=== PATIENT | female | born 1950 | race Caucasian/White ===

== ENCOUNTER 2025-02-28 08:32 | Inpatient (IN) ==
--- NOTE | 2025-02-01 09:28 | PAT Medication Instructions ---
Medication Instructions Date of Service February 01, 2025 Home Medications albuterol 90 mcg/actuation aerosol inhaler 90 mcg inhalation DAILY PRN cholecalciferol (vitamin D3) 100 mcg (4,000 unit) capsule 100 mcg PO DAILY furosemide 20 mg tablet (Lasix) 20 mg PO QAM gabapentin 300 mg capsule 900 mg PO QAM ibuprofen 200 mg tablet (Advil) 400 mg PO Q6H PRN levothyroxine 100 mcg tablet 100 mcg PO QAM lisinopril 5 mg tablet 5 mg PO BID lorazepam 1 mg tablet 1 mg PO BID metoprolol succinate 50 mg tablet,extended release 24 hr 50 mg PO QPM [id number]-[id number] 8 mg-folic 400 mcg-K 50 mcg-lutein 300 mcg tablet (Centrum Silver Women) 1 tab PO DAILY quetiapine 50 mg tablet (Seroquel) 50 mg PO HS sertraline 100 mg tablet 100 mg PO BID zolpidem 10 mg tablet (Ambien) 10 mg PO HS Continue as directed albuterol 90 mcg/actuation aerosol inhaler 90 mcg inhalation DAILY PRN(use if needed; please bring with you to hospital day of surgery if possible) ASK your surgeon for instructions ibuprofen 200 mg tablet (Advil) 400 mg PO Q6H PRN DO NOT take the morning of surgery cholecalciferol (vitamin D3) 100 mcg (4,000 unit) capsule 100 mcg PO DAILY furosemide 20 mg tablet (Lasix) 20 mg PO QAM lisinopril 5 mg tablet 5 mg PO BID [id number] 8 mg-folic 400 mcg-K 50 mcg-lutein 300 mcg tablet (Centrum Silver Women) 1 tab PO DAILY Take morning of surgery With a small sip of water, OTHERWISE NOTHING TO EAT OR DRINK AFTER MIDNIGHT: gabapentin 300 mg capsule 900 mg PO QAM levothyroxine 100 mcg tablet 100 mcg PO QAM lorazepam 1 mg tablet 1 mg PO BID sertraline 100 mg tablet 100 mg PO BID Take evening before surgery lisinopril 5 mg tablet 5 mg PO BID lorazepam 1 mg tablet 1 mg PO BID metoprolol succinate 50 mg tablet,extended release 24 hr 50 mg PO QPM quetiapine 50 mg tablet (Seroquel) 50 mg PO HS sertraline 100 mg tablet 100 mg PO BID zolpidem 10 mg tablet (Ambien) 10 mg PO HS Other Notes If you have any questions please call us at [phone] or [phone] or [phone] or [phone]
--- NOTE | 2025-02-04 12:53 | Anesthesiology Consultation ---
Date of Service February 04, 2025 Assessment & Plan (1) Encounter for pre-operative examination: - cardiology clearance 02/10/25: "...preoperative cardiac clearance...based on history, physical examination and the above information do not recommend further invasive or noninvasive cardiovascular testing or procedures prior to proceeding with planned lumbar surgery...optimized from a cardiac standpoint to proceed with her scheduled procedure. Recommend continuing beta marianna throughout the perioperative phase...pacemaker recommendations will be provided through our device clinic. If electrocautery is used above the umbilicus, recommend magnet placement over pacemaker. No reprogramming needed after surgery..." - medical clearance 02/07/25: "...medically cleared..." - Medtronic pacemaker. - Patient states she was in [facility] ER last night for back pain. She states was told to keep plan for surgery. Denies any change since evaluation, including any saddle paresthesias/anesthesias, loss of bowel or bladder control. Patient summary report also lists falls. She states last fall was one week ago as she was sitting on edge of bed and reached down for something then slid off the bed-denies hitting head. Will request records. She reports soon appointment with PCP-will go to ER for any changed/worsening symptoms. Chart Review Chart Review: Acceptable Risk for Surgery and Patient seen in Pre Admission Testing Teaching & Discussion Pre-Anesthesia Teaching/Discussion Notes: Instructed NPO after midnight before surgery, except medications with 15 cc of water. Medication instructions provided according to the PAT guidelines. History Surgery Operation Date: 02/28/25 09:05 Proposed Procedures p L5-S1 Decompression and Fusion, Hardware Removal L3-L5 - Marcial Hebert DO Height/Weight Height: 5 ft 6.5 in Weight: 102.7 kg Allergies Allergy/AdvReac Type Severity Reaction Status Date / Time Iodinated Contrast Media AdvReac Severe Vomiting Verified 02/01/25 07:47 Medications Home Medications Medication Instructions Recorded Confirmed Last Taken albuterol 90 mcg/actuation aerosol 90 mcg inhalation DAILY PRN COPD 02/01/25 02/01/25 Unknown inhaler cholecalciferol (vitamin D3) 100 100 mcg PO DAILY 02/01/25 02/01/25 Unknown mcg (4,000 unit) capsule furosemide 20 mg tablet (Lasix) 20 mg PO QAM 02/01/25 02/01/25 Unknown gabapentin 300 mg capsule 900 mg PO QAM 02/01/25 02/01/25 Unknown ibuprofen 200 mg tablet (Advil) 400 mg PO Q6H PRN Pain 02/01/25 02/01/25 Unknown levothyroxine 100 mcg tablet 100 mcg PO QAM 02/01/25 02/01/25 Unknown lisinopril 5 mg tablet 5 mg PO BID 02/01/25 02/01/25 Unknown lorazepam 1 mg tablet 1 mg PO BID 02/01/25 02/01/25 Unknown metoprolol succinate 50 mg 50 mg PO QPM 02/01/25 02/01/25 Unknown tablet,extended release 24 hr nbhkpwrj-pcds-[id number] 8 mg-folic 400 1 tab PO DAILY 02/01/25 02/01/25 Unknown mcg-K 50 mcg-lutein 300 mcg tablet (Centrum Silver Women) quetiapine 50 mg tablet (Seroquel) 50 mg PO HS 02/01/25 02/01/25 Unknown sertraline 100 mg tablet 100 mg PO BID 02/01/25 02/01/25 Unknown zolpidem 10 mg tablet (Ambien) 10 mg PO HS 02/01/25 02/01/25 Unknown Past Medical History Medical History (Updated 02/04/25 @ 13:15 by Ca Gupta PA-C) Acid reflux "occasionally" Aortic stenosis mild CAD (coronary artery disease) non-obstructive COPD (chronic obstructive pulmonary disease) Albuterol Inhaler PRN "I saw a lung doctor years and years ago and just was told I was overweight." no longer follows with pulm Dilated cardiomyopathy EF 65-70% on 2023 echo History of adverse reaction to anesthesia "one of the nurses told me I needed extra oxygen after surgery." History of blood transfusion dionna-operative History of diverticulitis last episode of 7 years ago History of kidney stones passed on own Hypertension controlled, stable per pt Hypothyroidism Pacemaker Medtronic, follows with [facility] Paroxysmal atrial fibrillation Sleep apnea CPAP-compliant Patient denies h/o stroke, seizures, heart attack, heart failure, DM, or blood clots/DVTs. Exercise / Class Metabolic Activity III < 4 Walking/Shop/Light housework (denies chest discomfort or shortness of breath with usual activities) Past Surgical History Surgical History History of arthroscopy of left knee History of arthroscopy of left shoulder History of cardiac catheterization no stents - "something went wrong and they rushed me to get my pacemaker." [facility] History of cholecystectomy History of colonoscopy History of D&C multiple History of hysterectomy History of lumbar surgery hardware present History of right cataract extraction History of tooth extraction Upper/Lower Dentures Status post cardiac pacemaker procedure Past Anesthesia History No Hx of Anesthesia Complications and No Family Hx of Anesthesia Complications History of PONV No Hx of PONV and No Hx of Motion Sickness Social History Smoking Status: Never smoker Do You Dip or Chew Tobacco: No Hx Alcohol Use: No Hx Substance Use: No substance use type: does not use Review of Systems Patient denies chest pain, shortness of breath, dyspnea on exertion, fever, chills, cough, wheezing, or palpitations. Physical Exam Vital Signs Vitals BP 122/85 P 75 TEMP 97.8 SP02 94% on RA RESP 18 Physical Patient resting comfortably in chair in no acute distress, alert and oriented, responding appropriately throughout visit Full cervical extension range of motion without pain TMD 3 finger breadths Mallampati Score 3 Dentition: edentulous, full upper and lower dentures Lungs: normal respiratory effort. Good air movement, clear throughout to auscultation, no adventitious breath sounds Cardiac: regular rate and rhythm, no murmurs noted Carotid arteries: negative bruit bilat Lab Results Anesthesia Preop Results Results Anesthesia Widget: WBC 7.68 K/ul (4.8-10.8) 02/04/25 Hgb 15.6 g/dl (12.0-16.0) 02/04/25 Hct 46.4 % (37.0-47.0) 02/04/25 Plt 353 K/uL (130-400) 02/04/25 Na 141 mmol/L (136-145) 02/04/25 K 3.8 mmol/L (3.5-5.1) 02/04/25 Cl 106 mmol/L (98-107) 02/04/25 CO2 29 mmol/L (21-32) 02/04/25 BUN 17 mg/dl (6-23) 02/04/25 Creat 0.76 mg/dl (0.6-1.2) 02/04/25 Glucose Level 91 mg/dl (70-99(Fasting)) 02/04/25 PT 12.1 Seconds (9.0-12.0) H 02/04/25 PTT 32 Seconds (21-31) H 02/04/25 INR 1.1 (0.9-1.1) 02/04/25 Urine Color Yellow 02/04/25 Urine Appearance Clear (Clear) 02/04/25 Urine pH 5.0 (4.5-7.5) 02/04/25 Urine Specific [place] 1.021 (1.000-1.030) 02/04/25 Urine Protein Negative (Negative) 02/04/25 Urine Glucose (UA) Negative (Negative) 02/04/25 Urine Ketones Negative (Negative) 02/04/25 Urine Blood Negative (Negative) 02/04/25 Urine Nitrite Negative (Negative) 02/04/25 Urine Bilirubin Negative (Negative) 02/04/25 Urine Urobilinogen Negative (Negative) 02/04/25 Urine Leukocyte Esterase Trace (Negative) H 02/04/25 Urine WBC (Auto) 0-5 /hpf (0-5) 02/04/25 Urine RBC (Auto) 0-2 /hpf (0-2) 02/04/25 Urine Hyaline Casts (Auto) 3-5 /lpf (0-2) H 02/04/25 Urine Epithelial Cells (Auto) 11-20 /hpf (0-2) H 02/04/25 Urine Bacteria (Auto) 2+ (None Seen) H 02/04/25 Blood Type AB Positive 02/04/25 Antibody Screen NEGATIVE 02/04/25 Testing Laboratory Results Surgeon's office made aware of abnormal UA. Electrocardiogram Date: 02/10/25 Electronic atrial pacemaker RBBB Chest X-Ray Date: 12/26/24 *1 view* Stable appearance without acute disease seen at this time Echocardiogram Date: 12/09/23 EF 65-70% Mid aortic stenosis, peak and mean transaortic pressure gradients of 21 mmHg and 13 mmHg Estimation of the aortic valve area was not accurately calculated, but the gradients would be consistent with very mild stenosis Mild tricuspid insufficiency Cervical Spine Date: 12/26/24 No acute fracture or traumatic subluxation Prominent multilevel left-sided degenerative facet changes Prominent marginal osteophytes throughout the vertebral bodies Mild multilevel degenerative disc height loss Severe atlantodental degenerative change Other Testing Head CT 12/26/24 No acute intracranial pathology Pacemaker report 11/16/24 Medtronic AAIR DDDR 0 pace terminated episodes "All values WNL" No new episodes since last transmission /VS 75.3%, SHIP SURVEYOR 21.5%
[2025-02-28] MEDS ORDERED: LIDOCAINE 2% 2 ML VIAL/AMP(20MG/ML) INFIL ONE (08:38)
[2025-02-28] MEDS ORDERED: PROPOFOL IV EMULSION 10 MG/ML 20 ML VIAL IV ONE (08:38)
[2025-02-28] MEDS ORDERED: ROCURONIUM BROMIDE 10 MG/ML 5 ML VIAL IV ONE (08:38)
[2025-02-28] MEDS ORDERED: MIDAZOLAM HCL 1 MG/ML 2ML VIAL ONE (08:39)
[2025-02-28] MEDS: LR 60ML/HR IV SCH (09:07)
[2025-02-28] MEDS: ACETAMINOPHEN 500 MG TAB PO SCH (09:14)
[2025-02-28] MEDS: LR 15ML/HR IV SCH (09:14)
[2025-02-28] MEDS: CeleBREX 200 MG CAP PO SCH (09:14)
[2025-02-28] MEDS: GABAPENTIN 300 MG CAP PO SCH (09:21)
[2025-02-28] MEDS ORDERED: ATROPINE SULFATE 0.1 MG/ML 10ML SYR IV PRN (09:39)
[2025-02-28] MEDS ORDERED: HYDROmorphone INJ 2 MG/ML SYR/VIAL IV PRN (09:39)
[2025-02-28] MEDS ORDERED: PROMETHAZINE HCL 6.25 MG in SODIUM CHLORIDE 0.9% 50 ML IV PRN (09:39)
--- NOTE | 2025-02-28 09:55 | History & Physical Bridge Note ---
Date of Service February 28, 2025 History & Physical Bridge Note I have examined the patient, reviewed the History & Physical and in the interval since the performance of the History & Physical I have noted the following changes of clinical significance: no changes noted
--- NOTE | 2025-02-28 09:56 | History & Physical Report ---
Date of Service February 28, 2025 Assessment & Plan (1) Lumbosacral spondylosis with radiculopathy: Plan: L5-S1 decompression fusion, hardware removal L3-L5 History of Present Illness Chief Complaint: Back and bilateral leg pain Primary Care Provider: Matt Michele MD This is a 75-year-old female who presents with chronic persistent back and bilateral leg pain after failing course of nonoperative care is here for surgical intervention. Allergies Allergy/AdvReac Type Severity Reaction Status Date / Time Iodinated Contrast Media AdvReac Severe Vomiting Verified 02/28/25 08:53 Home Medications Medication Instructions Recorded Confirmed Type albuterol 90 mcg/actuation aerosol 90 mcg inhalation DAILY PRN COPD 02/01/25 02/28/25 History inhaler cholecalciferol (vitamin D3) 100 100 mcg PO DAILY 02/01/25 02/28/25 History mcg (4,000 unit) capsule furosemide 20 mg tablet (Lasix) 20 mg PO QAM 02/01/25 02/28/25 History gabapentin 300 mg capsule 900 mg PO QAM 02/01/25 02/28/25 History ibuprofen 200 mg tablet (Advil) 400 mg PO Q6H PRN Pain 02/01/25 02/28/25 History levothyroxine 100 mcg tablet 100 mcg PO QAM 02/01/25 02/28/25 History lisinopril 5 mg tablet 5 mg PO BID 02/01/25 02/28/25 History lorazepam 1 mg tablet 1 mg PO BID 02/01/25 02/28/25 History metoprolol succinate 50 mg 50 mg PO QPM 02/01/25 02/28/25 History tablet,extended release 24 hr tejxuauw-eqpt-zsdt 8 mg-folic 400 1 tab PO DAILY 02/01/25 02/28/25 History mcg-K 50 mcg-lutein 300 mcg tablet (Centrum Silver Women) quetiapine 50 mg tablet (Seroquel) 50 mg PO HS 02/01/25 02/28/25 History sertraline 100 mg tablet 100 mg PO BID 02/01/25 02/28/25 History zolpidem 10 mg tablet (Ambien) 10 mg PO HS 02/01/25 02/28/25 History acetaminophen 500 mg tablet 1,000 mg PO Q6H PRN Pain 02/28/25 02/28/25 History apixaban 5 mg tablet (Eliquis) 5 mg PO BID 02/28/25 02/28/25 History Past Med/Surg History Problem List (Updated 02/28/25 @ 09:56 by Marical Hebert DO) Lumbosacral spondylosis with radiculopathy Encounter for pre-operative examination Lumbar stenosis with neurogenic claudication (Acute 01/03/14) Medical History (Updated 02/28/25 @ 09:56 by Marcial Hebert DO) History of blood transfusion dionna-operative History of diverticulitis last episode of 7 years ago Aortic stenosis mild Paroxysmal atrial fibrillation CAD (coronary artery disease) non-obstructive Dilated cardiomyopathy EF 65-70% on 2023 echo History of adverse reaction to anesthesia "one of the nurses told me I needed extra oxygen after surgery." History of kidney stones passed on own Acid reflux "occasionally" Hypothyroidism Hypertension controlled, stable per pt Pacemaker Medtronic, follows with [facility] Sleep apnea CPAP-compliant COPD (chronic obstructive pulmonary disease) Albuterol Inhaler PRN "I saw a lung doctor years and years ago and just was told I was overweight." no longer follows with pulm Surgical History History of tooth extraction Upper/Lower Dentures History of lumbar surgery hardware present History of arthroscopy of left shoulder History of arthroscopy of left knee History of hysterectomy History of D&C multiple History of cholecystectomy History of colonoscopy History of right cataract extraction History of cardiac catheterization no stents - "something went wrong and they rushed me to get my pacemaker." [facility] Status post cardiac pacemaker procedure Social History Smoking Status: Never smoker Second Hand Exposure: No; Do You Dip or Chew Tobacco: No; Tobacco Cessation Education Requested by Patient: No Hx Alcohol Use: No Hx Substance Use: No Preferred Language: Indonesian Communication Ability: Effective Rolfer Required: No Beliefs That Will Affect Care: None Current Living Situation: Family Current Living Situation Comment: [facility] Other Information That Helps Us Care for You: No Feels Safe at Home: Yes Safety Concerns: Feels Safe At This Time Assistive Devices: CPAP, Denture - Upper, Denture - Lower, Glasses and Walker Physical Exam Physical Exam: Patient is alert and oriented heart regular rhythm Lungs clear Results & Data Results & Data Vital Signs (Past 12 Hours) Vital Signs Temp Pulse Resp BP Pulse Ox O2 Del Method 02/28/25 09:22 Room Air 02/28/25 08:50 37.2 C 83 20 127/85 95 Room Air
[2025-02-28] MEDS ORDERED: HYDROmorphone INJ 2 MG/ML SYR/VIAL ONE (10:54)
[2025-02-28] MEDS: BUPIVACAINE/EPINEPHRINE 0.25% 1:200,000 30 ML VIAL ONE (11:06)
[2025-02-28] MEDS ORDERED: KETOROLAC 30 MG/ML VIAL ONE ×2 (12:10)
[2025-02-28] MEDS ORDERED: SUGAMMADEX SODIUM 200 MG/2 ML VIAL IV ONE (12:10)
[2025-02-28] MEDS: ceFAZolin 330 MG/ML 1 GM VIAL ONE (12:18)
[2025-02-28] MEDS: FLOSEAL HEMOSTATIC MATRIX 10ML TOP ONE (12:20)
--- NOTE | 2025-02-28 12:28 | Operative Report ---
Post Operative Report Pre & Post Diagnosis Operation Date: 02/28/25 09:55 Pre-Op Diagnosis: #1 lumbosacral Spondylosis with Radiculopathy #2 lumbar discrimination with radiculopathy Post-Op Diagnosis: Same I identified the patient and participated in the time-out.: Yes Procedure Operation Date: 02/28/25 09:55 Actual Procedures #1 removal of posterior instrumentation L5 pedicle screw and connector. #2 lumbar decompression with bilateral medial facetectomies and foraminotomies L5- S1. #3 posterior spinal fusion L5-S1. #4 placement posterior instrumentation using camber screws and connectors. #5 interbody fusion L5-S1. #6 placement of Spira 14 x 26 mm cage at L5-S1. #7 placement of Proteus combined with Koros in the posterior gutters and os design in the interbody space. #8 application of versa wrap of the exposed dura. Surgeon Marcial Hebert, Nursing Professor Joselyn Barron Estimated Blood Loss 350 Findings Consistent with Post-Op Diagnosis Specimens None Indications This is a 75-year-old female presents publish diagnosis of failing course of nonoperative care is here for surgical invention. Description of Procedure Patient was met with identified informed consent obtained. Patient was then taken to the operative suite underwent intubation placed in a prone position on the Silver table atop the Dario frame. All bony prominences well-padded eyes inspected to ensure no external precipice upon them. This point the lumbar spine was prepped and draped in normal sterile fashion. Sharp dissection with the assistance of Bovie cautery performed down to and exposing the instrumentation and L5 the lamina of L5 and the sacral ala bilaterally. I then proceeded remove the pedicle screws and connectors at the L5 level. This was followed by complete laminectomy of L5 with bilateral medial facetectomies and foraminotomies addressing severe neural compression and a disc herniation on the left. Pedicle screws were then placed in S1 bilaterally with assistance of fluoroscopy and by way of connectors at the distal aspect of the existing boyd new rods were placed extending from the connectors to the S1 levels bilaterally. By way of transforaminal approach on the left a complete discectomy of L5-S1 was performed endplates corrected to subcortical bleeding bone and a 14 x 26 mm Spira cage filled with os design bone graft tapped in position. The rods were then compressed locked in a final position bilaterally. The transverse processes of L5 and the sacral ala burred to subcortical bleeding bone. Proteus combined with Koros and local autograft placed in posterolateral gutters. Versa wrap placed of exposed dura. 15 round ALTHEA drain inserted. The incision was then closed with 1 Vicryl fascia 2-0 Vicryl subcutaneously and 4-0 Monocryl for final skin closure. Steri-Strips sterile dressing placed. Patient waken taken to PACU in stable condition. Please note Joselyn Barron was present of the entire procedure and on the patient positioning complex portion of the surgery and final skin closure. I attest to the content of the Intraoperative Record and any orders documented therein. Any exceptions are noted below.
--- NOTE | 2025-02-28 12:45 | Fluoroscopy Report ---
FL lumbar spine 2-3V CLINICAL HISTORY: L5-S1 DECOMPRESSION AND FUSION, L3-L5 HARDWARE REMOVAL COMPARISON STUDY: None FLUOROSCOPY TIME: 15 seconds FLUOROSCOPY IMAGES: 3 EXPOSURE DOSE: 14 mGy FINDINGS: Fluoroscopy was provided for lumbar metallic fusion. IMPRESSION: Intraoperative fluoroscopy. ACT 112: Negative or not required by law. Electronically signed by: Tristan Wyatt M.D. 02/28/2025 12:44 PM
--- NOTE | 2025-02-28 13:27 | Anesthesiology Progress Note ---
Date of Service February 28, 2025 Anesthesia Post Procedure Vital Signs Vital Signs: Temp Pulse Pulse Resp BP Pulse Ox O2 Del Method 02/28/25 13:15 78 19 142/77 H 99 Nasal Cannula 02/28/25 13:05 80 16 137/80 100 Oxymask 02/28/25 12:55 80 17 145/92 H 100 Oxymask 02/28/25 12:45 80 17 146/82 H 99 Oxymask 02/28/25 12:37 36.4 C L 75 10 L 154/88 H 100 Oxymask 02/28/25 09:22 Room Air 02/28/25 08:50 37.2 C 83 20 127/85 95 Room Air O2 Flow Rate 02/28/25 13:15 2 02/28/25 13:05 6 02/28/25 12:55 6 02/28/25 12:45 6 02/28/25 12:37 6 02/28/25 09:22 02/28/25 08:50 Pain Intensity Left Hip: Pain Intensity: 10 Back: Pain Intensity: 3 Transfer of Care Handoff Completed per policy Notes Mental Status: alert / awake / arousable Patient Amnestic to Procedure: Yes Nausea / Vomiting: adequately controlled Pain: adequately controlled Airway Patency, RR, SpO2: stable & adequate BP & HR: stable & adequate Hydration State: stable & adequate Anesthetic Complications: no major complications apparent
[2025-02-28] MEDS ORDERED: ONDANSETRON INJ 2 MG/ML 2 ML VIAL IV PRN (14:54)
[2025-02-28] MEDS ORDERED: DO NOT ADMINISTER PNEUMOCOCCAL VACCINE PRN (14:54)
[2025-02-28] MEDS ORDERED: ONDANSETRON 4 MG OD TAB PO PRN (14:54)
[2025-02-28] MEDS ORDERED: HYDROmorphone INJ 1 MG/ML SYRINGE IV PRN (14:54)
[2025-02-28] MEDS ORDERED: HYDROmorphone INJ 0.5 MG/0.5 ML SYR IV PRN (14:54)
[2025-02-28] MEDS ORDERED: SOD PHOSPHATE/SOD BIPHOSPHATE ENEMA 132 ML BTL PR PRN (14:54)
[2025-02-28] MEDS ORDERED: NALOXONE HCL 0.4 MG/1 ML VIAL/CARP IV PRN (14:54)
[2025-02-28] MEDS ORDERED: METOCLOPRAMIDE HCL INJ 5 MG/ML 2 ML VIAL IV PRN (14:54)
[2025-02-28] MEDS ORDERED: ACETAMINOPHEN 1,000 MG/100 ML VIAL IV PRN (14:54)
[2025-02-28] MEDS ORDERED: FAMOTIDINE 20 MG TAB PO PRN (14:54)
[2025-02-28] MEDS ORDERED: ALUMINUM/MAGNESIUM SUSP 30 ML UDC PO PRN (14:54)
[2025-02-28] MEDS ORDERED: ALBUTEROL HFA INHALER 8.5 GM INH PRN (14:54)
[2025-02-28] MEDS ORDERED: diphenhydrAMINE Capsule 25 MG CAP PO PRN (14:54)
[2025-02-28] MEDS ORDERED: DO NOT ADMINISTER FLU VACCINE PRN (14:54)
[2025-02-28] MEDS ORDERED: MAGNESIUM HYDROXIDE SUSP 30 ML UDC PO PRN (14:54)
[2025-02-28] MEDS ORDERED: PROMETHAZINE 12.5 MG/50.5 ML BAG IV PRN (14:54)
[2025-02-28] MEDS: LACTATED RINGER'S 1,000 ML IV SCH (15:08)
--- NOTE | 2025-02-28 15:23 | Consultation ---
Date of Consultation February 28, 2025 Assessment & Plan (1) Lumbosacral spondylosis with radiculopathy: (2) S/P lumbar fusion: (3) CAD (coronary artery disease): (4) Paroxysmal atrial fibrillation: (5) Hypothyroidism: (6) Depression: (7) Sleep apnea: (8) Insomnia: Plan 75 year old female with PMH significant for nonobstructive CAD, sick sinus syndrome s/p pacemaker (2017), chronic HFrEF, PAF on anticoagulation, hypothyroidism, JANELLE on CPAP, depression, insomnia and lumbosacral spondylosis with radiculopathy who underwent L5-S1 decompression fusion and hardware removal on 02/28/[address] Hebert. We have been consulted for post operative medical management. Lumbosacral spondylosis with radiculopathy POD#0 L5-S1 decompression fusion and hardware removal on 02/28/[address] Hebert Activity level, pain control, DVT prophylaxis, wound/drain care per primary team Encourage incentive spirometer Monitor labs in am for post op anemia (EBL 350cc and preop Hgb 15.6) PT/OT in am Nonobstructive CAD Chronic HFrEF Follows with Cardiology Continue furosemide, metoprolol, lisinopril Appears euvolemic Monitor I&Os Atrial fibrillation Continue metoprolol Resume Eliquis as determined by primary team JANELLE CPAP HS per home settings Hypothyroidism Continue levothyroxine Depression Continue sertraline and seroquel Insomnia Continue zolpidem DVT Prophylaxis: TEDs/SCDs per primary team Code Status: FULL CODE PCP: Matt Michele from [facility] Disposition: per primary team Patient seen in collaboration with Dr Beltre. Please see addendum. Thank you for this consultation. We will continue to follow this patient with you. [facility]01 via the role in [employer] - please don't hesitate to reach out with questions. I spent a total of 60 minutes coordinating, documenting and providing care for this patient excluding time spent in the performance of separately billed services or time spent by another provider/QHP. Supervising Physician Co-Signing Physician Notes Attending addendum: The patient was seen and examined in medical floor She is a status post L5-S1 decompression and fusion, L3-L5 hardware removal She has been feeling much better with minimal discomfort at the back Denies any chest pain, palpitation or shortness of breath and no abdominal pain nausea no vomiting On examination Lying in bed without any acute distress Remains hemodynamically stable Chestdecreased breath sounds without any wheezing and no crackles HeartS1-S2, regular Abdomenbenign Extremitiesno edema CNSalert, awake and oriented x 3 Her labs and imaging studies reviewed Status post L5-S1 decompression and fusion, L3-L5 hardware removal and has been stable following the procedure Her other significant medical conditions as mentioned above remains stable and the medication will be continued accordingly Monitor labs in the hospital Agree with assessment and plan as outlined above by ALYSSA Kenny and take the full responsibility of care in the hospital Dr Babatunde Beltre History of Present Illness Requesting Physician: Marcial Hebert DO Reason for Consultation: Post operative medical management Attending Physician: Marcial Hebert DO History of Present Illness 75 year old female with PMH significant for nonobstructive CAD, sick sinus syndrome s/p pacemaker (2017), chronic HFrEF, PAF on anticoagulation, hypothyroidism, JANELLE on CPAP, depression, insomnia and lumbosacral spondylosis with radiculopathy who underwent L5-S1 decompression fusion and hardware removal on 02/28/[address] Hebert. We have been consulted for post operative medical management. Patient seen in her inpatient room post operatively. Notes this is her second back surgery and she is doing much better this time. Reports 5/10 discomfort in her lower back but denies radiculopathy symptoms, which is an improvement from prior to surgery. Denies dizziness, lightheadedness, chest pain, SOB, abdominal pain, N/V/D. Has not passed gas yet but is eating dinner. Uses a walker for ambulation. Allergies Allergy/AdvReac Type Severity Reaction Status Date / Time Iodinated Contrast Media AdvReac Severe Vomiting Verified 02/28/25 08:53 Home Medications Medication Instructions Recorded Confirmed Type albuterol 90 mcg/actuation aerosol 90 mcg inhalation DAILY PRN COPD 02/01/25 02/28/25 History inhaler cholecalciferol (vitamin D3) 100 100 mcg PO DAILY 02/01/25 02/28/25 History mcg (4,000 unit) capsule furosemide 20 mg tablet (Lasix) 20 mg PO QAM 02/01/25 02/28/25 History gabapentin 300 mg capsule 900 mg PO QAM 02/01/25 02/28/25 History ibuprofen 200 mg tablet (Advil) 400 mg PO Q6H PRN Pain 02/01/25 02/28/25 History levothyroxine 100 mcg tablet 100 mcg PO QAM 02/01/25 02/28/25 History lisinopril 5 mg tablet 5 mg PO BID 02/01/25 02/28/25 History lorazepam 1 mg tablet 1 mg PO BID 02/01/25 02/28/25 History metoprolol succinate 50 mg 50 mg PO QPM 02/01/25 02/28/25 History tablet,extended release 24 hr [id number] 8 mg-folic 400 1 tab PO DAILY 02/01/25 02/28/25 History mcg-K 50 mcg-lutein 300 mcg tablet (Centrum Silver Women) quetiapine 50 mg tablet (Seroquel) 50 mg PO HS 02/01/25 02/28/25 History sertraline 100 mg tablet 200 mg PO DAILY 02/01/25 02/28/25 History zolpidem 10 mg tablet (Ambien) 10 mg PO HS 02/01/25 02/28/25 History acetaminophen 500 mg tablet 1,000 mg PO Q6H PRN Pain 02/28/25 02/28/25 History apixaban 5 mg tablet (Eliquis) 5 mg PO BID 02/28/25 02/28/25 History oxycodone 5 mg tablet 5 mg PO Q6H PRN pain #30 tabs 02/28/25 Rx tramadol 50 mg tablet 50 mg PO Q6H PRN pain, moderate 02/28/25 Rx #30 tabs Patient History Medical History (Updated 02/28/25 @ 18:47 by ALYSSA Germain) Insomnia Depression History of blood transfusion dionna-operative History of diverticulitis last episode of 7 years ago Aortic stenosis mild Paroxysmal atrial fibrillation CAD (coronary artery disease) non-obstructive Dilated cardiomyopathy EF 65-70% on 2023 echo History of adverse reaction to anesthesia "one of the nurses told me I needed extra oxygen after surgery." History of kidney stones passed on own Acid reflux "occasionally" Hypothyroidism Hypertension controlled, stable per pt Pacemaker [employer], follows with [facility] Sleep apnea CPAP-compliant COPD (chronic obstructive pulmonary disease) Albuterol Inhaler PRN "I saw a lung doctor years and years ago and just was told I was overweight." no longer follows with pulm Surgical History (Updated 02/28/25 @ 18:47 by ALYSSA Germain) History of tooth extraction Upper/Lower Dentures History of lumbar surgery hardware present History of arthroscopy of left shoulder History of arthroscopy of left knee History of hysterectomy History of D&C multiple History of cholecystectomy History of colonoscopy History of right cataract extraction History of cardiac catheterization no stents - "something went wrong and they rushed me to get my pacemaker." [facility] Status post cardiac pacemaker procedure Social History Smoking Status: Never smoker Second Hand Exposure: No; Do You Dip or Chew Tobacco: No; Tobacco Cessation Education Requested by Patient: No Hx Alcohol Use: No Hx Substance Use: No Preferred Language: Romanian Communication Ability: Effective Winder Fixer Required: No Beliefs That Will Affect Care: None Current Living Situation: Family Current Living Situation Comment: [facility] Other Information That Helps Us Care for You: No Feels Safe at Home: Yes Safety Concerns: Feels Safe At This Time Assistive Devices: CPAP, Denture - Upper, Denture - Lower, Glasses and Walker Review of Systems Review of Systems: All systems reviewed & are unremarkable except as noted in HPI & below Physical Exam Physical Exam: General/Psych: obese, sitting up in bed, appears slightly uncomfortable, conversing easily Head: normocephalic, atraumatic Eyes: normal inspection, PERRL, conjunctivae pink ENT: external ear and nose normal, oropharynx normal Neck: normal visual inspection, trachea midline Respiratory: normal respiratory effort, lungs clear to auscultation, no wheeze/rales/rhonchi, no accessory muscle use Cardiovascular: regular rate and rhythm, systolic murmur appreciated, no JVD Extremities: no cyanosis or clubbing, normal peripheral pulses, no BLE edema, sensation intact BLE Abdomen/GI: normal bowel sounds, soft, nontender Neurologic/MSK: A+Ox3, motor strength 5/5, moves all extremities Skin: no rashes, normal color, warm and dry, island dressing c/d/i, ALTHEA drain with sanguinous output Results & Data Vital Signs (Past 12 Hours) Vital Signs Temp Pulse Pulse Resp BP Pulse Ox O2 Del Method 02/28/25 14:59 36.6 C 76 18 127/77 96 Room Air 02/28/25 14:35 37.3 C 72 16 115/73 96 Room Air 02/28/25 14:05 37.2 C 76 16 125/80 93 Room Air 02/28/25 13:50 74 18 135/67 98 Nasal Cannula 02/28/25 13:35 77 17 128/72 98 Nasal Cannula 02/28/25 13:25 36.6 C 78 17 141/69 H 99 Nasal Cannula 02/28/25 13:15 78 19 142/77 H 99 Nasal Cannula 02/28/25 13:05 80 16 137/80 100 Oxymask 02/28/25 12:55 80 17 145/92 H 100 Oxymask 02/28/25 12:45 80 17 146/82 H 99 Oxymask 02/28/25 12:37 36.4 C L 75 10 L 154/88 H 100 Oxymask 02/28/25 09:22 Room Air 02/28/25 08:50 37.2 C 83 20 127/85 95 Room Air O2 Flow Rate 02/28/25 14:59 02/28/25 14:35 02/28/25 14:05 02/28/25 13:50 2 02/28/25 13:35 2 02/28/25 13:25 2 02/28/25 13:15 2 02/28/25 13:05 6 02/28/25 12:55 6 02/28/25 12:45 6 02/28/25 12:37 6 02/28/25 09:22 02/28/25 08:50 Medications Administered Current Inpatient Medications Acetaminophen (Acetaminophen 500 Mg Tab) 1,000 mg PO Q8H PRN PRN Reason: MILD Pain (1,2,3) & Pre PT Stop: 03/30/25 14:53 Al Hydrox/Mg Hydrox/Simethicone (Aluminum/Magnesium Susp 30 Ml Udc) 30 ml PO Q6H PRN PRN Reason: Dyspepsia Stop: 03/30/25 14:53 Albuterol (Albuterol Hfa Inhaler 8.5 Gm) 90 puffs INH DAILY PRN PRN Reason: COPD Bisacodyl (Bisacodyl 10 Mg Supp) 10 mg DC DAILY PRN PRN Reason: Constipation Stop: 03/30/25 14:53 Diphenhydramine HCl (Diphenhydramine Capsule 25 Mg Cap) 25 mg PO Q6H PRN PRN Reason: Allergic Rhinitis/Insomnia Stop: 03/30/25 14:53 Famotidine (Famotidine 20 Mg Tab) 20 mg PO Q12H PRN PRN Reason: Dyspepsia Stop: 03/30/25 14:53 Furosemide (Furosemide 20 Mg Tab) [facility] [place] Stop: 03/31/25 08:59 Gabapentin (Gabapentin 300 Mg Cap) 900 mg PO [facility] Stop: 03/31/25 08:59 Hydromorphone HCl (Hydromorphone Inj 0.5 Mg/0.5 Ml Syr) 0.5 mg IV Q3H PRN PRN Reason: MODERATE Pain(4,5,6)/Pre PT Stop: 03/14/25 14:53 Hydromorphone HCl (Hydromorphone Inj 1 Mg/Ml Syringe) 1 mg IV Q3H PRN PRN Reason: SEVERE Pain (7,8,9,10) Stop: 03/14/25 14:53 Hydroxyzine HCl (Hydroxyzine Hcl 25 Mg Tab) 25 mg PO Q8H PRN PRN Reason: Anxiety Stop: 03/30/25 14:53 Lactated Ringer's (Lr) 1,000 mls @ 60 mls/hr IV .[id number] [facility] Stop: 02/28/25 22:39 Last Admin: 02/28/25 09:07 Dose: Not Given Lactated Ringer's (Lr) 1,000 mls @ 15 mls/hr IV .Q24H [facility] Stop: 03/01/25 05:59 Last Infusion: 02/28/25 10:28 Dose: Infused Lactated Ringer's (Lr) 1,000 mls @ 75 mls/hr IV .[id number] [facility] Stop: 03/01/25 08:00 Last Admin: 02/28/25 15:08 Dose: 75 mls/hr Acetaminophen (Ofirmev) 1,000 mg in 100 mls @ 400 mls/hr IV Q8H PRN PRN Reason: MILD Pain (1,2,3) & Pre PT Stop: 03/01/25 14:54 Cefazolin Sodium (Ancef 2000mg) 2,000 mg in 15 mls @ 3.75 mls/min IV Q8H MARIAJOSE; Protocol Stop: 03/01/25 02:33 Last Admin: 02/28/25 17:40 Dose: 3.75 mls/min Promethazine HCl (Phenergan) 12.5 mg in 50.5 mls @ 202 mls/hr IV Q6H PRN PRN Reason: Nausea And Vomiting Stop: 03/30/25 14:53 Dexamethasone 6 mg/ Syringe 1.5 mls @ 1 mls/min IV DAILY [facility] Stop: 03/03/25 09:02 Influenza Virus Vaccine Quadrival (Do Not Administer Flu Vaccine) 1 each N/A PRN PRN PRN Reason: Notification Stop: 03/30/25 14:53 Levothyroxine Sodium (Levothyroxine Sodium 100 Mcg Tablet) 100 mcg PO DAILYBB [facility] Stop: 03/31/25 06:29 Lisinopril (Lisinopril 5 Mg Tab) 5 mg PO BID [facility] Stop: 03/30/25 20:59 Lorazepam (Lorazepam 1 Mg Tab) 1 mg PO BID [facility] Stop: 03/30/25 20:59 Lorazepam (Lorazepam 0.5 Mg Tab) 0.5 mg PO Q8H PRN PRN Reason: Sedation/Anxiety Stop: 03/30/25 14:53 Lorazepam (Lorazepam 2 Mg/1 Ml Vial) 0.5 mg IV Q8H PRN PRN Reason: Sedation/Anxiety Stop: 03/30/25 14:53 Magnesium Hydroxide (Magnesium Hydroxide Susp 30 Ml Udc) 30 ml PO Q24H PRN PRN Reason: Constipation Stop: 03/30/25 14:53 Metoclopramide HCl (Metoclopramide Hcl Inj 5 Mg/Ml 2 Ml Vial) 10 mg IV Q6H PRN PRN Reason: Nausea &/or Vomiting Stop: 03/30/25 14:53 Metoprolol Succinate (Metoprolol Succ 50mg Ext Rel Tab) 50 mg PO QPM [facility] Stop: 03/30/25 20:59 Multivitamins/Minerals (Cerovite Adv Formula Tab) 1 tab PO DAILY [facility] Stop: 03/31/25 08:59 Naloxone HCl (Naloxone Hcl 0.4 Mg/1 Ml Vial/Carp) 0.1 mg IV Q5M PRN PRN Reason: Oversedation/Resp depression Stop: 03/30/25 14:53 Ondansetron HCl (Ondansetron Inj 2 Mg/Ml 2 Ml Vial) 4 mg IV Q6H PRN PRN Reason: Nausea &/or Vomiting Stop: 03/30/25 14:53 Ondansetron HCl (Ondansetron 4 Mg Od Tab) 4 mg PO Q6H PRN PRN Reason: Nausea Stop: 03/30/25 14:53 Oxycodone HCl (Oxycodone Hcl Ir 5 Mg Tab (Immediate Release)) 5 - 10 mg PO Q4H PRN PRN Reason: MOD/SEV Pain & Pre PT Stop: 03/14/25 14:53 Last Admin: 02/28/25 17:39 Dose: 5 mg Pneumococcal Polyvalent Vaccine (Do Not Administer Pneumococcal Vaccine) 1 each N/A PRN PRN PRN Reason: Notification Stop: 03/30/25 14:53 Polyethylene Glycol (Polyethylene (Miralax) 17 Gm Pack) 17 gm PO Q6 [facility] Stop: 03/31/25 05:59 Quetiapine Fumarate (Quetiapine Fumarate 25 Mg Tablet) 50 mg PO HS [facility] Stop: 03/30/25 20:59 Senna/Docusate Sodium (Docusate Sodium/Senna 50/8.6mg Tab) 2 tab PO HS [facility] Stop: 03/30/25 20:59 Sertraline HCl (Sertraline Hcl 100 Mg Tablet) 100 mg PO BID [facility] Stop: 03/30/25 20:59 Sodium Biphosphate/Sodium Phosphate (Sod Phosphate/Sod Biphosphate Enema 132 Ml Btl) 132 ml DC ONE PRN PRN Reason: Constipation Stop: 03/30/25 14:53 Tramadol HCl (Tramadol Hcl 50 Mg Tablet) 50 - 100 mg PO Q4H PRN PRN Reason: MOD/SEV Pain & Pre PT Stop: 03/30/25 14:53 Vitamin D (Cholecalciferol 25 Mcg (1000 Units) Tab) 100 mcg PO DAILY [facility] Stop: 03/31/25 08:59 Zolpidem Tartrate (Zolpidem Tartrate 5 Mg Tab) 10 mg PO HS [facility] Stop: 03/30/25 20:59
[2025-02-28] MEDS: DOCUSATE SODIUM/SENNA 50/8.6MG TAB PO SCH (20:15)
[2025-02-28] MEDS: SERTRALINE HCL 100 MG TABLET PO SCH (20:15)
[2025-02-28] MEDS: LORazepam 1 MG TAB PO SCH (20:15)
[2025-02-28] MEDS: METOPROLOL SUCC 50MG EXT REL TAB PO SCH (20:15)
[2025-02-28] MEDS: ZOLPIDEM TARTRATE 5 MG TAB PO SCH (20:15)
[2025-03-01] MEDS: LORazepam 0.5 MG TAB PO PRN (04:01)
[2025-03-01] MEDS: LEVOTHYROXINE SODIUM 100 MCG TABLET PO SCH (05:46)
[2025-03-01] MEDS: POLYETHYLENE (MIRALAX) 17 GM PACK PO SCH (05:46)
[2025-03-01 06:37] LABS: Hematocrit (blood only) 41.5 % (37.0-47.0); Hemoglobin 13.2 g/dl (12.0-16.0); Immature Granulocytes # (auto) 0.19 K/uL (0.01-0.20); Immature Granulocytes % (auto) 1.2 %; Mean Corpuscular Hemoglobin 29.4 pg (25.0-34.0); Mean Corpuscular Volume 92.4 fL (80.0-100.0); Platelet Count 308 K/uL (130-400); RDW Standard Deviation 50.9 fL (36.4-46.3); Red Blood Count 4.49 M/uL (4.20-5.40); White Blood Count 15.34 K/ul (4.8-10.8)
[2025-03-01 06:54] LABS: Anion Gap 7.0 (3-11); Blood Urea Nitrogen 14.0 mg/dl (6-23); Calcium 8.3 mg/dl (8.6-10.3); Carbon Dioxide 24.0 mmol/L (21-32); Chloride 108.0 mmol/L (98-107); Creatinine Clr Calc Pharmacy 75.8 ml/min; Glucose 121.0 mg/dl (70-99(Fasting)); Potassium 3.4 mmol/L (3.5-5.1); Sodium 139.0 mmol/L (136-145)
[2025-03-01] MEDS: dexAMETHasone 6 MG in SYRINGE 0 ML IV SCH (08:03)
[2025-03-01] MEDS: CEROVITE ADV FORMULA TAB PO SCH (08:03)
[2025-03-01] MEDS: CHOLECALCIFEROL 25 MCG (1000 UNITS) TAB PO SCH (08:04)
[2025-03-01] MEDS: GABAPENTIN 300 MG CAP PO SCH (08:05)
[2025-03-01] MEDS: FUROSEMIDE 20 MG TAB PO SCH (08:05)
--- NOTE | 2025-03-01 08:10 | Orthopedic Progress Note ---
Date of Service March 01, 2025 Assessment & Plan (1) Lumbosacral spondylosis with radiculopathy: Plan This time initiate physical therapy monitor ALTHEA output. Will determine disposition pending occupational therapy and physical therapy input. Admission and Anticipated Discharge Date Admission Date: February 28, 2025 Subjective Patient's back pain is controlled leg symptoms markedly improved Physical Exam Physical Exam: Patient is in the chair at bedside. She is comfortable. Good strength testing. Results & Data Vital Signs (Past 12 Hours) Vital Signs Temp Pulse Pulse Resp BP Pulse Ox O2 Del Method 03/01/25 07:46 36.7 C 89 18 108/70 97 Room Air 03/01/25 03:56 36.6 C 71 18 113/73 94 Room Air 02/28/25 23:43 82 17 96 02/28/25 23:02 36.8 C 84 18 124/74 99 Room Air 02/28/25 20:22 37.1 C 84 18 117/74 96 Room Air 02/28/25 20:13 105 H 18 128/76 98 Room Air Queries Orthopedic Spine Obesity: Yes
[2025-03-01] MEDS: POTASSIUM CHLORIDE CRTAB 20 MEQ TABCR PO STA (08:38)
[2025-03-01] MEDS: ACETAMINOPHEN 500 MG TAB PO PRN (09:41)
--- NOTE | 2025-03-01 13:40 | Hospitalist Progress Note ---
Date of Service March 01, 2025 Assessment & Plan (1) Lumbosacral spondylosis with radiculopathy: (2) S/P lumbar fusion: (3) CAD (coronary artery disease): (4) Paroxysmal atrial fibrillation: (5) Hypothyroidism: (6) Depression: (7) Sleep apnea: (8) Insomnia: Plan 75 year old female with PMH significant for nonobstructive CAD, sick sinus syndrome s/p pacemaker (2017), chronic HFrEF, PAF on anticoagulation, hypothyroidism, JANELLE on CPAP, depression, insomnia and lumbosacral spondylosis with radiculopathy who underwent L5-S1 decompression fusion and hardware removal on 02/28/[address] Hebert. We have been consulted for post operative medical management. Lumbosacral spondylosis with radiculopathy -POD#1 L5-S1 decompression fusion and hardware removal on 02/28/[address] Hebert -Activity level, pain control, DVT prophylaxis, wound/drain care per primary team -Encourage incentive spirometer -continue to monitor labs -skilled for SNF, referrals sent Nonobstructive CAD Chronic HFrEF -Follows with Cardiology -Continue furosemide, metoprolol, lisinopril Atrial fibrillation -Continue metoprolol -Resume Eliquis as determined by primary team JANELLE -CPAP HS per home settings Hypothyroidism -Continue levothyroxine Depression -Continue sertraline and seroquel Insomnia -Continue zolpidem I spent a total of 35 minutes in direct patient care, including [id number] time with the patient and/or family, reviewing medical records, ordering and reviewing diagnostic tests, and coordinating care with other healthcare providers. This time includes: history taking, physical examination, medical decision making, counseling, ECG interpretation, imaging interpretation, lab interpretation, orders, and education, excluding time spent in the performance of separately billed services. Admission and Anticipated Discharge Date Admission Date: February 28, 2025 Subjective Patient seen and examined at bedside. Patient doing well today. Tired and in a bit of pain after moving around this morning. Skilled for SNF, patient requesting [facility] at this time (relayed to manufacturing maintenance manager). Review of Systems Review of Systems: CONSTITUTIONAL: fatigue EYES: Patient denies any visual symptoms. EARS, NOSE, AND THROAT: No difficulties with hearing. No symptoms of rhinitis or sore throat. CARDIOVASCULAR: Patient denies chest pains, palpitations, orthopnea and paroxysmal nocturnal dyspnea. RESPIRATORY: No dyspnea on exertion, no wheezing or cough. GI: No nausea, vomiting, diarrhea, constipation, abdominal pain, hematochezia or melena. : No urinary hesitancy or dribbling. No nocturia or urinary frequency. No abnormal urethral discharge. MUSCULOSKELETAL: pain with movement NEUROLOGIC: No chronic headaches, no seizures. Patient denies numbness, tingling or weakness. PSYCHIATRIC: Patient denies problems with mood disturbance. No problems with anxiety. ENDOCRINE: No excessive urination or excessive thirst. DERMATOLOGIC: Patient denies any rashes or skin changes. Physical Exam Physical Exam: Gen: A&O 3 NAD, frailty noted HEENT: NCAT, EOMI, not icteric. External ears normal. No rhinorrhea. Moist mucous membranes. Neck: Supple, full range of motion, no observable masses, No meningeal sign. Lungs: No Respiratory distress. CV: RRR, no edema. Abdomen: Soft, nondistended, No rebound tenderness. MSK: ALTHEA drain placed, s/p procedure Skin: No rashes, petechiae, lesions. Normal color per patient. Neuro: Normal Gait, Grossly intact. Psych: Appropriate for situation. Results & Data Results & Data Vital Signs (Past 12 Hours) Vital Signs Temp Pulse Resp BP BP Pulse Ox O2 Del Method 03/01/25 11:22 36.9 C 83 18 125/83 93 Room Air 03/01/25 07:46 36.7 C 89 18 108/70 97 Room Air 03/01/25 03:56 36.6 C 71 18 113/73 94 Room Air Laboratory Results -personally reviewed, leukocytosis uptrending likely reactive in setting of procedure, Hgb and creatinine stable Medications Administered Acetaminophen (Acetaminophen 500 Mg Tab) 1,000 mg PO Q8H PRN PRN Reason: MILD Pain (1,2,3) & Pre PT Stop: 03/30/25 14:53 Last Admin: 03/01/25 09:41 Dose: 1,000 mg Documented By: MELECIO Furosemide (Furosemide 20 Mg Tab) [facility] [place] Stop: 03/31/25 08:59 Last Admin: 03/01/25 08:05 Dose: 20 mg Documented By: MELECIO Gabapentin (Gabapentin 300 Mg Cap) 900 mg PO QAM [facility] Stop: 03/31/25 08:59 Last Admin: 09/16/25 08:05 Dose: 900 mg Documented By: MELECIO Dexamethasone 6 mg/ Syringe 1.5 mls @ 1 mls/min IV DAILY [facility] Stop: 03/03/25 09:02 Last Admin: 03/01/25 08:03 Dose: 1 mls/min Documented By: MELECIO Cefazolin Sodium (Ancef 2000mg) 2,000 mg in 15 mls @ 3.75 mls/min IV Q8H [facility] Stop: 03/08/25 09:59 Last Admin: 03/01/25 09:41 Dose: 3.75 mls/min Documented By: MELECIO Levothyroxine Sodium (Levothyroxine Sodium 100 Mcg Tablet) 100 mcg PO DAILYBB [facility] Stop: 03/31/25 06:29 Last Admin: 03/01/25 05:46 Dose: 100 mcg Documented By: DAVID Lisinopril (Lisinopril 5 Mg Tab) 5 mg PO BID [facility] Stop: 03/30/25 20:59 Last Admin: 03/01/25 08:05 Dose: 5 mg Documented By: Admin: 02/28/25 20:15 Dose: 5 mg Documented By: DAVID Lorazepam (Lorazepam 1 Mg Tab) 1 mg PO BID [facility] Stop: 03/30/25 20:59 Last Admin: 03/01/25 08:09 Dose: 1 mg Documented By: Admin: 02/28/25 20:15 Dose: 1 mg Documented By: DAVID Lorazepam (Lorazepam 0.5 Mg Tab) 0.5 mg PO Q8H PRN PRN Reason: Sedation/Anxiety Stop: 03/30/25 14:53 Last Admin: 03/01/25 04:01 Dose: 0.5 mg Documented By: DAVID Metoprolol Succinate (Metoprolol Succ 50mg Ext Rel Tab) 50 mg PO QPM [facility] Stop: 03/30/25 20:59 Last Admin: 02/28/25 20:15 Dose: 50 mg Documented By: DAVID Multivitamins/Minerals (Cerovite Adv Formula Tab) 1 tab PO DAILY [facility] Stop: 03/31/25 08:59 Last Admin: 03/01/25 08:03 Dose: 1 tab Documented By: MELECIO Oxycodone HCl (Oxycodone Hcl Ir 5 Mg Tab (Immediate Release)) 5 - 10 mg PO Q4H PRN PRN Reason: MOD/SEV Pain & Pre PT Stop: 03/14/25 14:53 Last Admin: 03/01/25 08:04 Dose: 10 mg Documented By: Admin: 03/01/25 04:01 Dose: 10 mg Documented By: Admin: 02/28/25 17:39 Dose: 5 mg Documented By: KIKO Polyethylene Glycol (Polyethylene (Miralax) 17 Gm Pack) 17 gm PO Q6 [facility] Stop: 03/31/25 05:59 Last Admin: 03/01/25 13:11 Dose: 17 gm Documented By: Admin: 03/01/25 05:46 Dose: 17 gm Documented By: DAVID Quetiapine Fumarate (Quetiapine Fumarate 25 Mg Tablet) 50 mg PO HS [facility] Stop: 03/30/25 20:59 Last Admin: 02/28/25 20:15 Dose: 50 mg Documented By: DAVID Senna/Docusate Sodium (Docusate Sodium/Senna 50/8.6mg Tab) 2 tab PO HS [facility] Stop: 03/30/25 20:59 Last Admin: 02/28/25 20:15 Dose: 2 tab Documented By: DAVID Sertraline HCl (Sertraline Hcl 100 Mg Tablet) 100 mg PO BID [facility] Stop: 03/30/25 20:59 Last Admin: 03/01/25 08:03 Dose: 100 mg Documented By: Admin: 02/28/25 20:15 Dose: 100 mg Documented By: DAVID Tramadol HCl (Tramadol Hcl 50 Mg Tablet) 50 - 100 mg PO Q4H PRN PRN Reason: MOD/SEV Pain & Pre PT Stop: 03/30/25 14:53 Last Admin: 02/28/25 20:15 Dose: 100 mg Documented By: DAVID Vitamin D (Cholecalciferol 25 Mcg (1000 Units) Tab) 100 mcg PO DAILY [facility] Stop: 03/31/25 08:59 Last Admin: 03/01/25 08:04 Dose: 100 mcg Documented By: MELECIO Zolpidem Tartrate (Zolpidem Tartrate 5 Mg Tab) 10 mg PO HS [facility] Stop: 03/30/25 20:59 Last Admin: 02/28/25 20:15 Dose: 10 mg Documented By: DAVID
--- NOTE | 2025-03-02 09:53 | Orthopedic Progress Note ---
Date of Service March 02, 2025 Assessment & Plan (1) Lumbosacral spondylosis with radiculopathy: Plan: At this time we will continue physical therapy. Continue therapy as tolerated. Plan for rehab possible discharge tomorrow. Admission and Anticipated Discharge Date Admission Date: February 28, 2025 Subjective Patient's back pain is controlled left leg symptoms markedly improved. She is tolerating physical therapy. Physical Exam Physical Exam: Patient is in the chair at the bedside. Comfortable good strength testing. Results & Data Vital Signs (Past 12 Hours) Vital Signs Temp Pulse Resp BP Pulse Ox O2 Del Method 03/01/25 23:32 36.9 C 86 18 130/76 97 Room Air Queries Orthopedic Spine Obesity: Yes
[2025-03-02 12:48] LABS: Anion Gap 7.0 (3-11); Blood Urea Nitrogen 20.0 mg/dl (6-23); Calcium 8.5 mg/dl (8.6-10.3); Carbon Dioxide 28.0 mmol/L (21-32); Chloride 108.0 mmol/L (98-107); Creatinine Clr Calc Pharmacy 62.8 ml/min; Glucose 117.0 mg/dl (70-99(Fasting)); Potassium 3.4 mmol/L (3.5-5.1); Sodium 143.0 mmol/L (136-145)
[2025-03-02 13:03] LABS: Hematocrit (blood only) 39.4 % (37.0-47.0); Hemoglobin 12.5 g/dl (12.0-16.0); Mean Corpuscular Hemoglobin 30.0 pg (25.0-34.0); Mean Corpuscular Volume 94.7 fL (80.0-100.0); Platelet Count 257 K/uL (130-400); RDW Standard Deviation 52.9 fL (36.4-46.3); Red Blood Count 4.16 M/uL (4.20-5.40); White Blood Count 11.43 K/ul (4.8-10.8)
--- NOTE | 2025-03-02 13:31 | Hospitalist Progress Note ---
Date of Service March 02, 2025 Assessment & Plan (1) Lumbosacral spondylosis with radiculopathy: (2) S/P lumbar fusion: (3) Delirium due to another medical condition, acute, hyperactive: (4) CAD (coronary artery disease): (5) Paroxysmal atrial fibrillation: (6) Hypothyroidism: (7) Depression: (8) Sleep apnea: (9) Insomnia: Plan Patient 75-year-old female status post lumbar surgery. Continue outpatient medications as prescribed. Patient with some acute delirium over the garnett feeder hours. Suspect this is a combination of factors including sleep deprivation, not being able to use her CPAP, recent anesthesia, change in her environment and her usual routine, pain medications. Agree with holding Ambien, will discontinue and would not recommend continuing at discharge. Increase Seroquel at bedtime to assist with sleep. Respiratory therapy to use our CPAP while here in the hospital. Replace potassium Reviewed case management notes, Anticipate patient will be ready for discharge to [facility] when discharged per attending. Admission and Anticipated Discharge Date Admission Date: February 28, 2025 Subjective Patient reports she had a bad dream last night. Nurse reports patient had acute episode of delirium and was extremely confused did receive some Zyprexa. After that she was able to get some rest and this morning has been appropriate. She denies any chest pain or shortness of breath. Eating breakfast. Surgical pain appears to be well-controlled. Patient reports that she is not using her CPAP because it is missing a filter that is at her home. Nursing states that patient is refusing her CPAP. Patient told me she be willing to use 1 of ours while she is here. Physical Exam Physical Exam: Constitutional: Alert, nontoxic, sitting in chair HEENT: Mucous membranes moist. Lungs: Clear to auscultation, decreased, no wheezes rales or rhonchi CV: S1-S2, regular Abdomen: Soft, nontender, nondistended Extremities: No significant edema Neuro: No focal deficits Psych: Cooperative, normal mood Results & Data Results & Data Vital Signs (Past 12 Hours) Vital Signs O2 Del Method 03/02/25 08:05 Room Air, CPAP Diagnostic Findings Reviewed imaging, laboratory and diagnostic studies. Pertinent findings as below. CBC stable Potassium 3.4 Creatinine 0.88
[2025-03-02] MEDS: POTASSIUM CHLORIDE CRTAB 20 MEQ TABCR PO STA (14:39)
[2025-03-02] MEDS: POTASSIUM CHLORIDE CRTAB 20 MEQ TABCR PO ONE (17:12)
--- NOTE | 2025-03-03 08:37 | Discharge Summary ---
Date of Service March 03, 2025 Admission HPI Per Admitting Provider This is a 75-year-old female who presents with chronic persistent back and bilateral leg pain after failing course of nonoperative care is here for surgical intervention. Admission Exam (Per Admitting) Constitutional WD/WN, vitals as above Eyes normal visual [place] by confrontation ENMT external ear and nose normal, oropharynx normal Neck normal visual inspection Respiratory normal respiratory effort Cardiovascular Extremities: normal capillary refill Gastrointestinal (Abdomen) Inspection/Auscultation: abdomen normal to inspection Musculoskeletal Spine: + pain with thoraco-lumbar ROM Extremities: extremities normal to inspection and strength 5/5 throughout Skin no rashes, warm and dry Neurologic normal touch/pain/proprioception and moves all extremities Psychiatric A+Ox3, euthymic affect Eye Contact: good eye contact Discharge Data Consultations 02/28/25 14:54 Consult Hospitalist Routine Procedures Performed Operation Date: 02/28/25 09:55 Actual Procedures p L5-S1 Decompression and Fusion, L3-L5 Hardware Removal(Not Applicable) - Marcial Hebert, Hospital Course (1) Lumbosacral spondylosis with radiculopathy: Patient is being discharged to [facility] postoperative day 3 status post L3-S1 decompression and fusion. She has had a bowel movement. Pain is controlled. Leg symptoms improved compared to preoperative status. ALTHEA drain output left shift is 50 cc. Yesterday in physical therapy ambulating 40 feet plus to 90 feet. Overall doing well and is stable for discharge Discharge Instructions ACTIVITY RECOMMENDATIONS: SELF CARE INSTRUCTIONS AFTER THORACIC/LUMBAR FUSIONS 1. You may walk to your tolerance. It is good exercise for your legs and back. Expect some back and intermittent leg aches and pains. 2. You may perform "counter-top" level activities (make a sandwich, lalita with a project, etc.). 3. No bending or lifting of more than 10 pounds or back twisting of any nature (roll like a log when turning in bed). 4. You may ride in a car for 20-30 minutes at a time. No driving until after your first visit with your doctor. 5. Frequent changes of position and restricting sitting to 30 minutes at a time will help limit the amount of back spasms and stiffness you may experience. 6. You may discontinue the use of ambulatory aids (cane, crutches, etc.) once your strength and confidence allow. 7. You may business and services instructor the shower and let water strike your incision when you arrive home at least once daily. Do not take a tub bath, sit in a hot tub or go into a swimming pool until after your first recheck in the office. 8. You may resume previous diet. SPECIAL CARE INSTRUCTIONS: VERY IMPORTANT TO READ AND REVIEW A. Your surgical incision has been closed with a cosmetic suture under the skin that will dissolve in about 6 weeks. In 14 days, you can use a pair of clean scissors and cut the suture that is left outside of the skin at the ends of your incision. 1. The small skin tapes can be removed 7 days after surgery if they have not fallen off by that point. 2. You may keep the wound open to air as much as possible to promote healing after post-op day number 5 unless told otherwise by your doctor. 3. If you think the wound looks like it is becoming infected (redness or worsening drainage) and/or you are experiencing fever, chill or worsening back pain and muscle spasms, contact the office so that we may evaluate you as soon as possible. B. Complications are uncommon, but please contact us if you have any signs or symptoms of: 1. wound infection (fever higher than 102.5 degrees F, redness, separation of wound, drainage, or increasing pain from the incision) 2. blood clots in legs (pain, swelling, redness and warmth in legs) 3. urinary tract infection (fever higher than 102.5 degrees F, burning upon urination or increased frequency of urination) 4. nerve problems (inability to walk on your toes or heels, numbness, loss of bowel or bladder control) 5. any other symptoms that concern you C. Please call the office at if you have any concerns or questions about your operation or recovery. D. No smoking! Smoking drastically decreases the chance of a solid fusion. E. Do not take any anti-inflammatory medications (Indocin, Advil, Motrin, Aspirin, Naprosyn, etc.) as these may inhibit the chance of a solid fusion. Tylenol is okay to take for pain. MANAGING PAIN AFTER SPINAL SURGERY 1. Narcotic medication is intended for short-term use and will be provided for surgical pain. Surgical pain usually lasts for a period of 4-6 weeks. Narcotic medication includes Percocet, Vicodin, Darvocet, Tylenol #3 or Lortab. 2. Longer-term pain is more appropriately treated with non-narcotic medication such as Tylenol ES. 3. Muscle spasm is not appropriately treated with narcotics. Muscle relaxers such as Soma, Flexeril or Skelaxin can be used along with Tylenol ES. 4. Remember that we all live with some "aches and pains". This is not unusual or uncommon after an injury or as we get older. a. Back pain is expected and may include muscle spasms for 4 to 6 weeks after surgery. The pain should gradually improve. If the pain worsens for no apparent reason, please contact the office. b. Intermittent leg pain may also be experienced and should not be concerned about unless it worsens for no apparent reason. If so, please contact the office. 5. We will provide appropriate medication within the normal guidelines of their prescribed use. We will also be very cautious and aware of potential abuse and extended duration of patients' medication needs. a. Pain medications are for your comfort and to assist with sleep and rest so that the tissue can heal. They are not provided in order to return to normal activity and should not be used through the day. To do so or worsening pain at night can result from ongoing tissue damage and dev elopment of tolerance to the prescribed medicine. 6. Please allow 2-3 days to process refills. Prescriptions will not be mailed but must be picked up at the office. FOLLOW UP VISIT: Keep your scheduled follow-up appointment. Any questions, please call the office at .
[2025-03-03 09:19] VITALS: O2SAT 95
[2025-03-03] MEDS: APIXABAN 5 MG TABLET PO SCH (10:00)
--- NOTE | 2025-03-03 10:17 | Hospitalist Progress Note ---
Date of Service March 03, 2025 Assessment & Plan (1) Lumbosacral spondylosis with radiculopathy: (2) S/P lumbar fusion: (3) Delirium due to another medical condition, acute, hyperactive: (4) CAD (coronary artery disease): (5) Paroxysmal atrial fibrillation: (6) Hypothyroidism: (7) Depression: (8) Sleep apnea: (9) Insomnia: Plan Patient doing significantly better today. Delirium seems to have resolved and cleared. Patient medically ready for discharge to rehab facility when determined ready by surgical attending. Communication with Dr. Hebert yesterday, restart Eliquis today for secondary stroke prevention in setting of paroxysmal atrial fibrillation Continue increased Seroquel dose at bedtime for her insomnia and restlessness overnight. Reviewed discharge instructions and orders Admission and Anticipated Discharge Date Admission Date: February 28, 2025 Subjective Patient states she slept much better last night. No complaints this morning. Pain is controlled. Anticipates going to rehab. Physical Exam Physical Exam: Constitutional: Alert, sitting in chair, eating breakfast HEENT: Mucous membranes moist. Lungs: Clear to auscultation, decreased, no wheezes rales or rhonchi CV: S1-S2, regular Abdomen: Soft, nontender, nondistended Extremities: No significant edema Neuro: No focal deficits Psych: Cooperative, normal mood Results & Data Results & Data Vital Signs (Past 12 Hours) Vital Signs Temp Pulse Pulse Resp BP BP Pulse Ox 03/03/25 09:18 83 121/68 95 03/03/25 07:25 03/03/25 07:16 36.7 C 66 17 115/74 93 O2 Del Method 03/03/25 09:18 Room Air 03/03/25 07:25 Room Air 03/03/25 07:16 Room Air Diagnostic Findings Reviewed imaging, laboratory and diagnostic studies. Pertinent findings as below.
[2025-03-03] MEDS: SODIUM CHLORIDE 0.65% NA SOLN 45 ML (OCEAN) ONE (11:15)
[2025-03-03 16:48] VITALS: BP 129/75; PULSE 78; RESP 14; TEMP 98.6
== END 2025-03-03 17:56 | DRG 402 ==
LOC: ASU 08:32 → 3E 12:33